=== PATIENT | male | born 1970 | race Caucasian/White ===

== ENCOUNTER → 2021-06-24 08:49 | Outpatient (CLI) | payer OTHER, SELFPAY ==
[2021-06-24 09:10] LABS: COVID19 -Nasal RAPID Negative (Negative)
== END ==
PROVIDERS: PCP Family Medicine; Visit Provider Surgery
DX: Z01.812 Encounter for preprocedural laboratory examination (principal); Z20.822 Contact with and (suspected) exposure to COVID-19
CPT/HCPCS: 87635; C9803

== ENCOUNTER 2021-06-25 07:40 | Day surgery (SDC) | payer OTHER, SELFPAY ==
[2021-06-18 08:56] VITALS: BMI 29.9
[2021-06-25] VITALS (9 sets, daily range): BP systolic 116–141; BP diastolic 71–91; PULSE 81–105; RESP 12–22; TEMP 36.5–37.2; O2SAT 93–100; BMI 29.9
--- NOTE | 2021-06-25 08:02 | PM.HP.1 ---
History of Present Illness History of Present Illness Date Patient Seen: 06/25/21 Time Patient Seen: 08:02 Chief complaint: RECURRENT LIH REPAIR Narrative: He is a 51-year-old man with a recurrent left inguinal hernia. He had a laparoscopic bilateral hernia repair several years ago and has developed a recurrent left groin bulge. Patient History Medical History (Updated 06/18/21 @ 08:58 by Elsie Talavera RN) HLD (hyperlipidemia) Sleep apnea Surgical History (Updated 06/18/21 @ 08:58 by Elsie Talavera RN) History of bilateral inguinal hernia repair (06/06/15) Family & Social History Social History: household members spouse lives independently Yes Tobacco & Substance use: Smoking Status Current every day smoker Meds Home Medications and Allergies Home Medications Medication Instructions Recorded Confirmed Type atorvastatin 20 mg tablet 20 mg PO DAILY 05/30/21 06/18/21 History sildenafil 50 mg tablet (Viagra) 50 mg PO DAILY PRN 05/30/21 06/18/21 History Allergies Allergy/AdvReac Type Severity Reaction Status Date / Time No Known Drug Allergies Allergy Unverified 05/30/21 11:00 Exam Const General: healthy appearing Eyes General: appearance normal, both eyes and all related structures Resp Effort & Inspection: normal respiratory effort GI Other: Left inguinal hernia Skin General: no rashes or lesions noted Assessment & Plan Assessment and plan (1) Recurrent left inguinal hernia: Status: Acute Plan Open left inguinal hernia repair with mesh. Reviewed risks and benefits. Time Spent With Patient Critical Care time: I spent a total of [] minutes of critical care time on this patient's care today; this time is exclusive of procedural time.
[2021-06-25] MEDS: LACTATED RINGERS 1,000 ML 84 ML IV ×2 (08:21→10:07)
[2021-06-25] MEDS: CEFAZOLIN 2 GM/20 ML SYRINGE IV (08:55)
--- NOTE | 2021-06-25 09:05 | SUR.OPER ---
Supine on padded OR bed, head on pillow, arms secured on padded arm boards at <90 degrees abduction, legs uncrossed, safety belt at thigh, tape over blanket over lower legs. Gel pad placed under bilateral heels.
[2021-06-25] MEDS: LIDOCAINE 1% W/EPI 20 ML INJ (09:14)
[2021-06-25] MEDS: BUPIVACAINE 0.5% (PF) VIAL 30 ML INJ (09:15)
--- NOTE | 2021-06-25 10:28 | P.OP_ITS ---
Operative Date/Time/Diagnoses Date of procedure: 06/25/21 Time of procedure: 10:30 Pre-op diagnosis: Recurrent left inguinal hernia Post-op diagnosis: same Procedure & Clinicians Procedure: Recurrent left inguinal hernia repair with mesh Same procedure as scheduled: Yes Surgeon: Marino Jack Anesthesia Type: General Operative Notes Procedure in detail: Preoperative antibiotic was administered. The patient was brought to the operating room and placed on the table in supine position and general anesthesia was induced with LMA The left groin was prepped and draped in the normal fashion and a time-out was performed. Roughly 10 mL of local anesthetic were injected into the skin and subcutaneous adipose tissue over the left groin. A 6 cm incision was made over the left inguinal canal. Dissection was carried down through the subcutaneous adipose tissue. A bridging vein was cauterized. We exposed the external oblique aponeurosis in the direction of the fibers. Additional local was injected deep to the aponeurosis. A 15 blade scalpel was used to jillian the external oblique aponeurosis. Metzenbaum scissors were used to carefully open the aponeurosis in the direction of the fibers taking care not to injure the underlying ilioinguinal nerve which was well seen and protected. We completely exposed the inguinal canal. The cord was dissected free from the inguinal ligament and floor of the inguinal canal and the external oblique aponeurosis was dissected off of the internal oblique taking care not to injure the hypogastric nerve. We encircled the cord with a [place] drain for retraction. There was a bulky cord lipoma a portion of which was transected and the remainder of which was reduced through the internal ring. We explored the cord thoroughly and no sac was found. The old laparoscopic mesh could be felt deep to the internal ring. We then fashioned a piece of polypropylene mesh to fit the inguinal canal floor. The mesh was secured with multiple interrupted 3-0 Prolene sutures to the pubic tubercle and shelving edge of the inguinal ligament as well as to the conjoint tendon medially. The tails were overlapped to recreate a new internal ring and the medial tail secured to the inguinal ligament with additional sutures. We inj ected some more local into the fatty tissue in the inguinal canal and cord. Finally, we removed the [place] drain and closed the external oblique fascia with a running 3-0 Vicryl suture. Skin was closed with interrupted 3-0 Vicryl dermal sutures and a running 4 Monocryl subcuticular stitch. EBL 5 mL The patient was awakened and brought to recovery room. Post-operative Condition: stable Disposition: PACU
[2021-06-25] MEDS: OXYCODONE/ACETAMINOPHEN 5/325 TABLET 1 TAB PO (10:56)
--- NOTE | 2021-06-25 11:52 | SUR.PHASEII ---
d/c instructions discussed. Pt stated that he felt so much better than the last time he had surgery, denied nausea, denied need to void.
--- NOTE | 2021-06-25 11:53 | SUR.PHASEII ---
Pt left unit in stable condition.
== END 2021-06-25 11:40 | disposition home or self-care (01) ==
PROVIDERS: PCP Family Medicine; Referring Provider Surgery; Visit Provider Surgery
PROC: (CPT 49520; principal; 2021-06-25 08:45)
DX: K40.91 Unilateral inguinal hernia, without obstruction or gangrene, recurrent (principal); E78.5 Hyperlipidemia, unspecified; G47.33 Obstructive sleep apnea (adult) (pediatric); F17.210 Nicotine dependence, cigarettes, uncomplicated; E66.9 Obesity, unspecified
CPT/HCPCS: 49520; C1781; J0690; J1100; J2405; J2704; J3010

== ENCOUNTER 2021-06-27 06:01 | Emergency (ER) | payer OTHER, SELFPAY ==
[2021-06-27 06:05] VITALS: BP 132/82; PULSE 100; RESP 18; TEMP 36.6; O2SAT 98; BMI 29.9
--- NOTE | 2021-06-27 06:29 | DI.US.S_ITS ---
PROCEDURE: US PERIPH VENOUS LOW EXTREM BI INDICATIONS: POST-OP LEG PAIN TECHNIQUE: Real-time imaging, as well as color and pulse Doppler interrogation, were performed of the deep veins of both legs from the inguinal ligament to the popliteal fossa. COMPARISON: None. FINDINGS: Right: The common femoral, femoral and popliteal veins are normally compressible, and free of intraluminal thrombus. Color and pulse Doppler demonstrate normal phasic intravascular flow. There is normal augmentation response to distal compression maneuver. Left: The common femoral, femoral and popliteal veins are normally compressible, and free of intraluminal thrombus. Color and pulse Doppler demonstrate normal phasic intravascular flow. There is normal augmentation response to distal compression maneuver. IMPRESSION: No evidence of deep vein thrombosis involving either the right or left lower extremities. Dictated by: Ivis Blanc MD, PhD on 06/27/2021 at 7:47 Approved by: Ivis Blanc MD, PhD on 06/27/2021 at 7:47
[2021-06-27] MEDS: KETOROLAC 30 MG/ML VIAL IM (06:41)
--- NOTE | 2021-06-27 06:51 | ED_ITS ---
HPI - Extremity Problem General Chief complaint: Extremity Problem,Nontraumatic Stated complaint: calf pain/both legs x1 day Time Seen by Provider: 06/27/21 06:15 Source: patient Mode of arrival: Ambulatory History of Present Illness HPI Narrative: Patient is a 51-year-old male who presents with right calf pain. He had left inguinal hernia surgery 2 days ago S an outpatient. He says it does hurt to walk. He may be compensating some. His calf does not hurt to touch but it does hurt posteriorly. No significant swelling or shortness of breath. He has been taking hydrocodone postoperatively for pain but it does not seem to be helping his calves. Related Data Home Medications Medication Instructions Recorded Confirmed atorvastatin 20 mg tablet 20 mg PO DAILY 05/30/21 06/18/21 sildenafil 50 mg tablet (Viagra) 50 mg PO DAILY PRN 05/30/21 06/18/21 Previous Rx's Medication Instructions Recorded hydrocodone 5 mg-acetaminophen 325 1 tab PO Q8H PRN #14 tab 06/25/21 mg tablet Allergies Allergy/AdvReac Type Severity Reaction Status Date / Time No Known Drug Allergies Allergy Verified 06/25/21 08:04 Review of Systems Review of Systems Narrative: GENERAL: Denies chills, fatigue, malaise, fever, sweats, travel HEENT: Denies sinus pain, ear pain, sore throat, difficulty swallowing, neck pain RESPIRATORY: Denies dyspnea, cough, wheezing, hemoptysis, sputum. CARDIOVASCULAR: Denies chest pain, palpitations, orthopnea, edema GASTROINTESTINAL: Denies nausea, vomiting, abdominal pain, diarrhea, constipation, melena. : Denies dysuria, frequency, incontinence, hematuria, urinary retention, flank pain. MUSCULOSKELETAL: See HPI SKIN: No rash, no erythema, no pruritus NEUROLOGIC: Denies weakness, dizziness, headache, numbness, change in speech, confusion PSYCHIATRIC: No concerning psychosocial issues. 12 point review of systems is negative except for those stated above and HPI Patient History Medical History (Updated 06/27/21 @ 07:00 by Marianna Malone DO) HLD (hyperlipidemia) Sleep apnea Surgical History (Updated 06/18/21 @ 08:58 by Elsie Talavera RN) History of bilateral inguinal hernia repair (06/06/15) Social History marital status: unknown household members: spouse lives independently: Yes Smoking Status: Current every day smoker alcohol intake: current Smoking Status: Current every day smoker alcohol intake frequency: holidays/special occasions only Substance Use Type: does not use Exam Initial Vital Signs Initial Vital Signs: Vital Signs Temperature 98 F 06/27/21 06:05 Pulse Rate 100 H 06/27/21 06:05 Respiratory Rate 18 06/27/21 06:05 Blood Pressure 132/82 06/27/21 06:05 Pulse Oximetry 98 06/27/21 06:05 GENERAL: Alert well-appearing 51-year-old maleand in no acute distress. HEENT: Head atraumatic,EOMI, pupils reactive, face symmetric, moist mucous membr anes CARDIOVASCULAR: Regular rate and rhythm without murmurs, rubs or gallops. RESPIRATORY: Breath sounds equal bilaterally, no wheezes rales or rhonchi. Left inguinal hernia incision bandage is clean and dry no significant erythema ABDOMEN: Soft, nontender. Normoactive bowel sounds all 4 quadrants. No guarding or rebound. EXTREMITIES: Normal range of motion, no clubbing or edema. Neurovascularly intact. Calf pain right side no significant swelling not reproducible to palpation NEUROLOGICAL: Alert and oriented x4. SKIN: Warm, dry, no laceration, no petechiae, no rashes or lesions. Course Orders Ordered: Discontinued Medications Ketorolac Tromethamine (Ketorolac 30 Mg/Ml Vial) 30 mg IM NOW ONE Stop: 06/27/21 06:30 Last Admin: 06/27/21 06:41 Dose: 30 mg Documented by: [email or web address] Vital Signs Vital signs: Vital Signs - 8 hr 06/27/21 06:05 Temperature 98 F Pulse Rate 100 H Respiratory Rate 18 Blood Pressure 132/82 Pulse Oximetry 98 MDM - Extremity (Nontraumatic) Imaging Data US - DVT: Radiologist's Impression: PROCEDURE:? US PERIPH VENOUS LOW EXTREM BI ? INDICATIONS:? POST-OP LEG PAIN ? TECHNIQUE:? Real-time imaging, as well as color and pulse Doppler interrogation, were performed of the deep veins of both legs from the inguinal ligament to the popliteal fossa.? ? COMPARISON:? None. ? FINDINGS:? ? Right: The common femoral, femoral and popliteal veins are normally compressible, and free of intraluminal thrombus.? Color and pulse Doppler demonstrate normal phasic intravascular flow.? There is normal augmentation response to distal compression maneuver.? ? Left: The common femoral, femoral and popliteal veins are normally compressible, and free of intraluminal thrombus.? Color and pulse Doppler demonstrate normal phasic intravascular flow.? There is normal augmentation response to distal compression maneuver.? ? ? IMPRESSION:? No evidence of deep vein thrombosis involving either the right or left lower extremities. ? ? Dictated by: Ivis Blanc MD, PhD on 06/27/2021 at 7:47? MDM Narrative Medical decision making narrative: Patient is post operative 2 days with pain in his calf. No significant swelling ultrasound is negative. He is likely compensating is an walking abnormally causing a strain in his calf. Toradol seemed to help him with pain the most. Discharge Plan Departure Patient Disposition: Home Clinical Impression: Strain of right calf muscle Instructions: Calf Muscle Strain Activity Restrictions/Additional Instructions: *You have been diagnosed with right calf strain *What to do: At this time no evidence of blood clot. Probably due to compensating after surgery. Stretch heat. *Continue to take medications as directed *Follow up with your primary care provider in 2-3 days, follow-up with surgery as scheduled. or call [phone] *Return to ER if you should have increasing pain swelling redness or any new, worsening or concerning symptoms Prescriptions: No Action atorvastatin 20 mg tablet 20 mg PO DAILY 0RF sildenafil [Viagra] 50 mg tablet 50 mg PO DAILY PRN (Reason: Sexual Activity) 0RF Rx Instructions: administer 30 minutes to 4 hours before activity hydrocodone-acetaminophen 5-325 mg tablet 1 tab PO Q8H PRN (Reason: pain) Qty: 14 0RF Referrals: Jason Chew MD [Primary Care Provider] -
[2021-06-27 07:20] VITALS: BP 132/77; PULSE 96; RESP 18; O2SAT 99
[2021-06-27 07:21] VITALS: BP 132/77; PULSE 95; RESP 18; O2SAT 100
== END 2021-06-27 07:21 | disposition home or self-care (01) ==
PROVIDERS: Emergency Provider Emergency Medicine; PCP Family Medicine
DX: S86.911A Strain of unspecified muscle(s) and tendon(s) at lower leg level, right leg, initial encounter (principal); X58.XXXA Exposure to other specified factors, initial encounter
CPT/HCPCS: 93970; 96372; 99283; J1885